=== PATIENT | male | born 1960 | race Caucasian/White ===

== ENCOUNTER → 2018-11-03 | Outpatient (CLI) | payer OTHER ==
[~2018-11-03] MED LIST: ATOR40TA78 PO; BACL-19 PO; BUSP10TA PO; IBUP200C8 PO; INSU100I17 SC; INSU100I17 SQ; LISI-170 PO; LISI40TA PO; METF500T9 PO; METO-99 PO; METO25TA35 PO
[2018-11-03 14:40] LABS: ALBUMIN 2.8 g/dL (3.4-5.0); ANION GAP 4 mmol/L (5-15); CALCIUM 10.3 mg/dL (8.5-10.1); CHLORIDE 104 mmol/L (98-107)
[2018-11-03 14:42] LABS: ALANINE AMINOTRANSFERASE 28 U/L (12-78); ALKALINE PHOSPHATASE 113 U/L (45-117); BILIRUBIN,TOTAL 0.3 mg/dL (0.2-1.0); CREATININE 0.76 mg/dL (0.7-1.3); TOTAL PROTEIN 7.1 g/dL (6.4-8.2)
== END | disposition home or self-care (01) ==
LOC: STAR 13:21
PROVIDERS: ATTEND Urology
DX: Z01.818 Encounter for other preprocedural examination (principal); N20.0 Calculus of kidney
CPT/HCPCS: 36415; 80053

== ENCOUNTER 2018-11-08 09:54 | Day surgery (SDC) | payer OTHER ==
[~2018-11-08] VITALS: Ht 180.3 cm; Wt 86.4 kg
[2018-11-08 11:11] VITALS: BP 164/93
[2018-11-08 11:14] VITALS: BP 164/93
[2018-11-08] MEDS ORDERED: LACTATED RINGERS 1,000 ML IV SCH (11:24)
[2018-11-08] MEDS ORDERED: SODIUM CHLORIDE 0.9% 1,000 ML IV SCH (11:35)
[2018-11-08] MEDS ORDERED: OXYcodone/APAP 10/325MG TABLET ONE (11:49)
[2018-11-08] MEDS ORDERED: SCOPOLAMINE PATCH, 1.5MG PATCH.TD72 TD ONE (12:00)
[2018-11-08] MEDS ORDERED: METOPROLOL TARTRATE 50 MG TABLET PO ONE (12:00)
[2018-11-08] MEDS ORDERED: ACETAMINOPHEN 500 MG TABLET PO ONE (12:00)
[2018-11-08] MEDS ORDERED: ONDANSETRON ODT 8 MG PO ONE (12:00)
[2018-11-08] MEDS ORDERED: FENTANYL PF 100 MCG/2ML ONE (12:02)
[2018-11-08] MEDS ORDERED: MIDAZOLAM 1 MG/ML, 5ML ONE (12:02)
[2018-11-08] MEDS ORDERED: FLUMAZENIL 0.1 MG/1 ML, 5ML ONE (12:03)
[2018-11-08] MEDS ORDERED: NALOXONE 1 MG/ML, 2ML ONE (12:03)
[2018-11-08] MEDS ORDERED: VISIPAQUE 270 MG/ML, 50ML BOTTLE ONE (13:08)
[2018-11-08] MEDS ORDERED: MIDAZOLAM 1 MG/ML, 2ML ONE (15:20)
[2018-11-08] MEDS ORDERED: FENTANYL PF 250 MCG/5ML ONE (15:20)
[2018-11-08] MEDS ORDERED: GENTAMICIN 80 MG/2 ML ONE (15:22)
[2018-11-08] MEDS ORDERED: CIPROFLOXACIN/PMX 400MG/200ML 200 ML ONE (15:22)
[2018-11-08] MEDS ORDERED: ONDANSETRON 2MG/ML, 2ML ONE ×2 (16:31)
[2018-11-08] MEDS ORDERED: DEXAMETHASONE 4 MG/ML, 1ML ONE ×2 (16:31)
== END 2018-11-08 17:20 | disposition home or self-care (01) ==
LOC: OUT 09:54
PROVIDERS: ATTEND Urology
DX: N20.0 Calculus of kidney (principal); I10 Essential (primary) hypertension; E11.9 Type 2 diabetes mellitus without complications; F41.9 Anxiety disorder, unspecified; G82.20 Paraplegia, unspecified; Z99.3 Dependence on wheelchair; Z79.899 Other long term (current) drug therapy; Z88.2 Allergy status to sulfonamides; Z88.8 Allergy status to other drugs, medicaments and biological substances; Z87.442 Personal history of urinary calculi; Z98.890 Other specified postprocedural states
CPT/HCPCS: 50433; 82962; 99156; 99157; C1751; C1769; C1894; C2625; J0744; J1100; J1580; J2250; J2405; J3010; J7030; J7120; Q0162; Q9966; 50432; 76937; J0171; J2310

== ENCOUNTER 2018-11-24 15:13 | Inpatient (IN) | payer OTHER ==
[~2018-11-24] VITALS: Ht 180.3 cm; Wt 87.0 kg
[2018-11-24 16:07] VITALS: BP 148/88
[2018-11-24] MEDS ORDERED: LACTATED RINGERS 1,000 ML IV SCH (16:14)
[2018-11-24 16:44] LABS: BASOPHILS # (AUTO) 0.02 x10^3/uL (0-0.1); BASOPHILS % (AUTO) 0 % (0-1); EOSINOPHILS # (AUTO) 0.17 x10^3/uL (0-0.4); EOSINOPHILS % (AUTO) 2 % (1-7); LYMPHOCYTES # (AUTO) 1.22 x10^3/uL (1-3.4); LYMPHOCYTES % (AUTO) 14 % (22-44); MD NO; MEAN CORPUSCULAR HEMOGLOBIN 31.7 pg (27.5-34.5); MEAN CORPUSCULAR HGB CONC 32.7 g/dL (33.2-36.2); MEAN CORPUSCULAR VOLUME 96.7 fL (81-97); MEAN PLATELET VOLUME 7.3 fL (7.4-10.4); MONOCYTES # (AUTO) 0.55 x10^3/uL (0.2-0.8); MONOCYTES % (AUTO) 6 % (2-9); NEUTROPHILS # (AUTO) 6.78 x10^3/uL (1.8-6.8); NEUTROPHILS % (AUTO) 78 % (42-75); PLATELET COUNT 175 x10^3/uL (130-400); RED CELL DISTRIBUTION WIDTH 14.2 % (9.4-14.8)
[2018-11-24] MEDS ORDERED: MIDAZOLAM 1 MG/ML, 2ML ONE (16:54)
[2018-11-24] MEDS ORDERED: FENTANYL PF 250 MCG/5ML ONE (16:54)
[2018-11-24 16:56] LABS: ALANINE AMINOTRANSFERASE 28 U/L (12-78); ALBUMIN 2.6 g/dL (3.4-5.0); ANION GAP 7 mmol/L (5-15); CALCIUM 9.5 mg/dL (8.5-10.1); CHLORIDE 107 mmol/L (98-107); CREATININE 0.74 mg/dL (0.7-1.3)
[2018-11-24] MEDS ORDERED: ROCURONIUM 10MG/ML,5ML ONE ×2 (16:56)
[2018-11-24 16:58] LABS: ALKALINE PHOSPHATASE 98 U/L (45-117); BILIRUBIN,TOTAL 0.2 mg/dL (0.2-1.0); TOTAL PROTEIN 6.7 g/dL (6.4-8.2)
[2018-11-24] MEDS ORDERED: METOPROLOL 1 MG/ML, 5ML ONE (17:53)
[2018-11-24] MEDS ORDERED: OMNIPAQUE 350 MG/ML, 50 ML BOTTLE INJ ONE (18:14)
[2018-11-24] MEDS ORDERED: MEPERIDINE/PF 25MG/0.5ML IVPush PRN (18:30)
[2018-11-24] MEDS ORDERED: FENTANYL PF 100 MCG/2ML IV PRN (18:30)
[2018-11-24] MEDS ORDERED: PROMETHAZINE 25 MG/ML, 1ML IV PRN (18:30)
[2018-11-24] MEDS ORDERED: LABETALOL 5MG/ML, 20ML IV PRN (18:30)
[2018-11-24] MEDS ORDERED: HYDROmorphone 2 MG/ML, 1ML IVPush PRN (18:30)
[2018-11-24] MEDS ORDERED: hydrALAzine 20 MG/ML, 1ML IV PRN (18:30)
[2018-11-24] MEDS ORDERED: ONDANSETRON 2MG/ML, 2ML IV PRN ×2 (18:30→23:45)
[2018-11-24] MEDS ORDERED: OXYcodone 5 MG/5 ML ORAL.SOL UDC PO PRN (18:30)
[2018-11-24] MEDS ORDERED: PROPOFOL 10 MG/ML, 20ML ONE (19:26)
[2018-11-24] MEDS ORDERED: DEXAMETHASONE 4 MG/ML, 1ML ONE (19:26)
[2018-11-24] MEDS ORDERED: ONDANSETRON 2MG/ML, 2ML ONE (19:26)
[2018-11-24] MEDS ORDERED: PHENYLEPHRINE 10 MG/ML ONE (19:26)
[2018-11-24] MEDS ORDERED: EPHEDRINE 50 MG/ML, 1ML ONE (19:26)
[2018-11-24] MEDS ORDERED: SUGAMMADEX 200 MG/2 ML IVPush ONE (19:28)
[2018-11-24] MEDS ORDERED: OMNIPAQUE 350 MG/ML, 50 ML BOTTLE IV ONE (19:44)
[2018-11-24 21:30] VITALS: BP 155/87
[2018-11-24] MEDS: LACTATED RINGERS 1,000 ML IV SCH (22:35)
[2018-11-24] MEDS ORDERED: METOPROLOL TARTRATE MC SCH (23:45)
[2018-11-24] MEDS ORDERED: BUSPIRONE MC SCH (23:45)
[2018-11-24] MEDS ORDERED: morphine SULFATE 10 MG/ML, 1ML IV PRN (23:45)
[2018-11-24] MEDS ORDERED: BACLOFEN MC SCH (23:45)
[2018-11-25] MEDS: HYDROcodone/APAP 5/325 TABLET PO PRN ×4 (00:18→15:32)
[2018-11-25 00:48] VITALS: BP 147/76
[2018-11-25] MEDS: LACTATED RINGERS 1,000 ML IV SCH ×2 (02:32→11:33)
[2018-11-25 03:49] VITALS: BP 162/79
[2018-11-25 05:19] LABS: BASOPHILS # (AUTO) 0.04 x10^3/uL (0-0.1); BASOPHILS % (AUTO) 0 % (0-1); EOSINOPHILS % (AUTO) 0 % (1-7); LYMPHOCYTES # (AUTO) 0.62 x10^3/uL (1-3.4); LYMPHOCYTES % (AUTO) 6 % (22-44); MD NO; MEAN CORPUSCULAR HEMOGLOBIN 32.1 pg (27.5-34.5); MEAN CORPUSCULAR HGB CONC 32.8 g/dL (33.2-36.2); MEAN CORPUSCULAR VOLUME 97.7 fL (81-97); MEAN PLATELET VOLUME 7.4 fL (7.4-10.4); MONOCYTES # (AUTO) 0.43 x10^3/uL (0.2-0.8); MONOCYTES % (AUTO) 4 % (2-9); NEUTROPHILS # (AUTO) 9.63 x10^3/uL (1.8-6.8); NEUTROPHILS % (AUTO) 90 % (42-75); PLATELET COUNT 156 x10^3/uL (130-400); RED BLOOD COUNT 5.25 x10^6/uL (4.38-5.82); RED CELL DISTRIBUTION WIDTH 14.4 % (9.4-14.8)
[2018-11-25 05:28] LABS: ANION GAP 5 mmol/L (5-15); CALCIUM 9.4 mg/dL (8.5-10.1); CHLORIDE 105 mmol/L (98-107); CREATININE 0.85 mg/dL (0.7-1.3)
[2018-11-25 06:50] VITALS: BP 170/78
[2018-11-25] MEDS ORDERED: BACLOFEN 10 MG TABLET PO SCH (09:00)
[2018-11-25] MEDS ORDERED: METOPROLOL TARTRATE 100 MG TABLET PO SCH (09:00)
[2018-11-25] MEDS ORDERED: CIPROFLOXACIN 500 MG TABLET PO SCH (09:00)
[2018-11-25] MEDS ORDERED: DOCUSATE 100 MG CAPSULE PO SCH (09:00)
[2018-11-25] MEDS ORDERED: METOPROLOL TARTRATE 50 MG TABLET PO SCH (09:00)
[2018-11-25] MEDS ORDERED: BUSPIRONE 10 MG TABLET PO SCH (09:00)
[2018-11-25] MEDS ORDERED: LISINOPRIL 40 MG TABLET PO SCH (09:00)
[2018-11-25] MEDS ORDERED: METOPROLOL TARTRATE 25 MG TABLET PO SCH (09:00)
[2018-11-25 13:53] VITALS: BP 161/79
[2018-11-25] MEDS ORDERED: TRAM50TA2 PO (15:07)
[2018-11-25] MEDS ORDERED: CIPR500T87 PO (15:08)
[2018-11-25] MEDS ORDERED: TAMS-11 PO (15:08)
[2018-11-25] MEDS ORDERED: ATORVASTATIN 40 MG TABLET PO SCH (21:00)
[2018-11-25] MEDS ORDERED: LISINOPRIL 20 MG TABLET PO SCH (21:00)
== END 2018-11-25 15:40 | disposition home or self-care (01) | DRG 659 ==
LOC: OR 15:13 → 4NOR 20:00 → OR 22:57
PROVIDERS: ADMIT Urology; ATTEND Urology
PROC: 0T743DZ Dilation of Left Kidney Pelvis with Intraluminal Device, Percutaneous Approach (ICD-10-PCS; 2018-11-24)
PROC: 0T2BX0Z Change Drainage Device in Bladder, External Approach (ICD-10-PCS; 2018-11-24)
PROC: BT121ZZ Fluoroscopy of Left Kidney using Low Osmolar Contrast (ICD-10-PCS; 2018-11-24)
PROC: 0TC13ZZ Extirpation of Matter from Left Kidney, Percutaneous Approach (ICD-10-PCS; principal; 2018-11-24 17:00)
DX: N20.0 Calculus of kidney (principal); E43 Unspecified severe protein-calorie malnutrition; G82.20 Paraplegia, unspecified; R32 Unspecified urinary incontinence; Z87.440 Personal history of urinary (tract) infections; Z98.1 Arthrodesis status; I10 Essential (primary) hypertension; Z88.8 Allergy status to other drugs, medicaments and biological substances
CPT/HCPCS: 36415; 76000; 80048; 80053; 82360; 82962; 85025; 88300; G0378; J1100; J2250; J2405; J2704; J3010; Q9967; C1727; C1769; C2617; J2370; J7120